=== PATIENT | female | born 1945 | race Caucasian/White ===

== ENCOUNTER 2018-06-16 10:46 | Emergency (ER) | payer MEDICARE, BC ==
[~2018-06-16] VITALS: Ht 170.2 cm; Wt 61.2 kg
[2018-06-16] MEDS ORDERED: MULTAQ400 MG PO (11:02)
[2018-06-16] MEDS ORDERED: LOVAZA1 GM PO (11:02)
[2018-06-16] MEDS ORDERED: REGLAN10 MG PO (11:03)
[2018-06-16] MEDS ORDERED: ELIQUIS5 MG PO (11:03)
[2018-06-16] MEDS ORDERED: MULTIVITAMINS1 EAC7 PO (11:04)
[2018-06-16] MEDS ORDERED: CALCIUM 600 +1 EA16 PO (11:05)
[2018-06-16] MEDS ORDERED: BACTRIM DS TAB1 EACH PO (15:43)
[2018-06-16] MEDS ORDERED: ROBAFEN AC ORA473 ML PO (15:43)
--- NOTE | 2018-06-16 19:39 | EKG ---
[facility] [address] [facility] [place] [address] Signed Sinus rhythm with occasional premature ventricular complexes Possible Left atrial enlargement Anterior infarct , age undetermined Abnormal ECG No previous ECGs available Confirmed by JEN GARIBAY MD ([id number]) on 06/16/2018 7:39:15 PM Electronically Signed By: JEN GARIBAY MD 06/16/18 1939 PATIENT NAME: JUAN DANIEL GERARD Electrocardiogram DATE OF : 49 PHYSICIAN: JEN GARIBAY MD REPORT #: [id number] REPORT IS CONFIDENTIAL AND NOT TO BE RELEASED WITHOUT AUTHORIZATION
== END 2018-06-16 16:00 | disposition home or self-care (01) ==
LOC: ED 10:46
DX: J40 Bronchitis, not specified as acute or chronic (principal); R07.89 Other chest pain; C91.10 Chronic lymphocytic leukemia of B-cell type not having achieved remission; Z79.899 Other long term (current) drug therapy
CPT/HCPCS: 71260; 80053; 84484; 85025; 93005; 93010; 99284-25; Q9967